=== PATIENT | male | born 1950 | race Caucasian/White ===

== ENCOUNTER → 2020-03-14 | Outpatient (CLI) | payer MEDICARE, OTHER ==
[2019-08-24 16:56] VITALS: BP 161/89
[~2020-03-14] MED LIST: ACET325T9 PO; AMLO-186 PO; ASPI-886 PO; ATOR20TA58 PO; ATOR40TA59 PO; DOCU-153 PO; Folic Acid PO; INDA1.25 PO; MAGN400T44 PO; METO25TA4 PO; MULT1TAB90 PO; QUIN20TA17 PO; THIA100T22 PO; TICA90TA PO
--- NOTE | 2020-03-14 14:16 | CARD ---
MR#: [id number] Date of Study: 03/14/2020 Ordering Physician: JARRED COLLINS, Referring Physician: JARRED COLLINS, Tech: Farheen Gilman KAREN APPROVED REPORT EXAM: Two-dimensional and M-mode echocardiogram with Doppler and color Doppler. Other Information Quality : Good INDICATION Non STEMI 2D DIMENSIONS RVDd3.1 (2.9-3.5cm)Left Atrium(2D)4.2 (1.6-4.0cm) IVSd0.8 (0.7-1.1cm)Aortic Root(2D)4.0 (2.0-3.7cm) LVDd5.8 (3.9-5.9cm)LVOT Diameter2.4 (1.8-2.4cm) PWd0.9 (0.7-1.1cm)LVDs3.7 (2.5-4.0cm) FS (%) 35.1 %SV104.9 ml LVEF(%)60.0 (>50%) Aortic Valve AoV Peak Raúl.125.0cm/sAoV VTI27.0cm AO Peak GR.6.3mmHgLVOT Peak Raúl.104.9cm/s AO Mean GR.3mmHgAVA (VMAX)3.75cm2 JOHN (VTI)4.20cm2 Mitral Valve MV E Tzrvrwfo47.7cm/sMV DECEL PSHV209qe MV A Ccxanqye38.3cm/sE/A Ratio1.2 Tricuspid Valve TR P. Uluwlhso384ux/sRAP GMHKAKKD2ckCd TR Peak Gr.35koCmWHXF63opDg LEFT VENTRICLE The left ventricle is normal size. There is normal left ventricular wall thickness. The left ventricu lar systolic function is normal and the ejection fraction is within normal range. The Ejection Fracti on is 55-60%. There is normal LV segmental wall motion. Transmitral Doppler flow pattern is Grade I-a bnormal relaxation pattern. RIGHT VENTRICLE The right ventricle is normal size. The right ventricular systolic function is normal. ATRIA The left atrium is mildly dilated. The right atrium size is normal. The interatrial septum is intact with no evidence for an atrial septal defect or patent foramen ovale as noted on 2-D or Doppler imagi ng. AORTIC VALVE The aortic valve is calcified but opens well. Doppler and Color Flow revealed trace aortic regurgitat ion. There is no significant aortic valvular stenosis. MITRAL VALVE The mitral valve is calcified but opens well. Mitral annular calcification is mild. There is no evide nce of mitral valve prolapse. There is no mitral valve stenosis. Doppler and Color-flow revealed mild to moderate mitral regurgitation. TRICUSPID VALVE The tricuspid valve is normal in structure and function. Doppler and Color Flow revealed mild tricusp id regurgitation. The PA pressure was estimated at 30 mmHg. There is no tricuspid valve stenosis. PULMONIC VALVE The pulmonic valve is not well visualized. Doppler and Color Flow revealed no pulmonic valvular regur gitation. There is no pulmonic valvular stenosis. GREAT VESSELS The aortic root is normal in size. The ascending aorta is mildly dilated t 3.8 cm. The IVC was not vi sualized. PERICARDIAL EFFUSION There is no evidence of significant pericardial effusion. Critical Notification Critical Value: No <Conclusion> The left ventricular systolic function is normal and the ejection fraction is within normal range. Th e Ejection Fraction is 55-60%. There is normal LV segmental wall motion. Doppler and Color-flow revealed mild to moderate mitral regurgitation. The ascending aorta is mildly dilated t 3.8 cm. Signed by : Collins Groves, Electronically Approved : 03/14/2020 14:16:11
== END ==
LOC: ECHO 09:39
PROVIDERS: ATTEND Internal Medicine Cardiovascular Disease
DX: I08.3 Combined rheumatic disorders of mitral, aortic and tricuspid valves (principal); I21.4 Non-ST elevation (NSTEMI) myocardial infarction
CPT/HCPCS: 93306